=== PATIENT | female | born 1970 | race Caucasian/White ===

== ENCOUNTER 2022-02-08 13:58 | Emergency (ER) | payer BC, SELFPAY ==
[2022-02-08 13:59] VITALS: BP 175/83; PULSE 114; RESP 18; TEMP 36.3; O2SAT 100; BMI 41.4
--- NOTE | 2022-02-08 14:06 | EX.ED.DYSGE1 ---
HPI History of Present Illness Chief Complaint: Allergic Reaction Narrative Narrative: Patient arrives to the emergency department after eating a gummy bear with THC, she fell asleep and then woke up with a rash which was quite itchy and she feels kind of out of it. It was the first time she took a THC gummy. She does not have any shortness of breath. She does not feel her throat swelling. She has a has no nausea vomiting or loose stools or any other symptoms. PFSH PFSH Medical History Goiter Hypertension Menopausal depression Menopausal symptoms Osteoarthritis Recurrent UTI TOTAL ABDOMINAL HYSTERECTOMY STILL HAS OVARIES FOR FIBROIDS Home Medications celecoxib 200 mg capsule 200 mg PO DAILY #30 cap 02/28/20 [Rx Last Taken Unknown] lisinopril 10 mg tablet 10 mg PO DAILY #30 tab 02/28/20 [Rx Last Taken Unknown] hydrochlorothiazide 25 mg PO DAILY 02/08/22 [History Last Taken Unknown] prednisone 20 mg PO DAILY #6 tab 02/08/22 [Rx Last Taken Unknown] Allergy/AdvReac Type Severity Reaction Status Date / Time topiramate AdvReac Severe painful Verified 02/08/22 14:01 eyes and watery burning eyes Surgical History H/O partial thyroidectomy Social History Smoking Status: Never smoker second hand exposure: No alcohol intake: current substance use type: does not use ROS ROS ED ROS Narrative Past medical history: Reviewed Medications: Reviewed Social history: Noncontributory Review of systems: All systems negative except as indicated General: No fever. Otherwise as in HPI Eyes: No visual changes ENT: No upper airway congestion, normal voice Neck: No neck pain Cardiovascular: No chest pain Respiratory: No shortness of breath or cough Gastrointestinal: No abdominal pain, nausea vomiting or diarrhea Genitourinary: No dysuria Musculoskeletal: Chronic arthritis Skin: As in HPI Neurological: No memory loss, confusion or any focal weakness Psych: No recent behavioral changes Hematologic: No easy bleeding or easy bruising EXAM Physical Exam Narrative Exam Narrative: Physical exam General: Patient appears somewhat anxious and uncomfortable Head: Normocephalic, Atraumatic Eyes: Conjunctiva not pale ENT: Moist mucous membranes. Normal uvula. Normal posterior oropharynx. Noticed tongue swelling. Normal voice. Neck: Supple, Nontender, No lymphadenopathy Cardiovascular: Regular rate, Regular rhythm Respiratory: No distress, CTA bilaterally. No wheezing Abdomen: Soft, Nontender, Nondistended Back: Nontender, Normal Inspection. Negative for: CVA tenderness Extremities: Nontender, No edema Skin: Diffuse erythematous blanching rash consistent with an allergic reaction Neurological: Alert, Normal Strength, Normal Sensation Psychological: Normal affect Const Vital Signs: 02/08/22 13:59 02/08/22 14:28 02/08/22 15:00 Temperature 97.3 F L Temperature Source Temporal Pulse Rate 114 H 101 H 94 Respiratory Rate 18 17 18 Blood Pressure 175/83 H 157/83 H 166/87 H Blood Pressure Mean 113 107 113 Pulse Ox 100 100 100 Oxygen Delivery Method Room Air Room Air Room Air MDM MDM MDM Narrative Medical decision making narrative: Patient was observed, her rash is now gone she feels still little bit strange this is likely secondary to THC she appears well I believe she is safe for discharge. Discharge Plan Triage Chief Complaint: Allergic Reaction ED Provider: Norman Casillas Dx/Rx/DC Orders Clinical Impression: Allergic reaction Instructions: ED ADVERSE DRUG REACTION Allergic Prescriptions: New prednisone 20 mg tablet 20 mg PO DAILY Qty: 6 RF: 0 No Action lisinopril 10 mg tablet 10 mg PO DAILY Qty: 30 RF: 12 celecoxib [Celebrex] 200 mg capsule 200 mg PO DAILY Qty: 30 RF: 12 hydrochlorothiazide 25 mg tablet 25 mg PO DAILY RF: 0 Primary Care Provider: Zeus Mendoza Referrals: Zeus Mendoza MD [Primary Care Provider] - 2 Days Disposition Disposition: Home, Self Care
[2022-02-08] MEDS: MethylPREDNISolone 125 MG/2 ML Vial IV (14:14)
[2022-02-08] MEDS: DiphenhydrAMINE 50 MG/ML Syringe 25 MG IV (14:14)
[2022-02-08] MEDS: Famotidine 200 MG/20 ML MDV 20 MG in 0.9% Normal Saline (Pres. free 8 ML 300 MG IV (14:20)
[2022-02-08 14:28] VITALS: BP 157/83; PULSE 101; RESP 17; O2SAT 100
[2022-02-08 15:00] VITALS: BP 166/87; PULSE 94; RESP 18; O2SAT 100
[2022-02-08] MEDS: hydrOXYzine PAM 25 MG Capsule 50 MG PO (15:57)
[2022-02-08 16:02] VITALS: BP 166/78; PULSE 97; RESP 18; O2SAT 100
== END 2022-02-08 16:03 | disposition home or self-care (01) ==
PROVIDERS: Emergency Provider Emergency Medicine; PCP Family Medicine; Visit Provider Emergency Medicine
DX: R21 Rash and other nonspecific skin eruption (principal); T40.715A Adverse effect of cannabis, initial encounter; Y92.9 Unspecified place or not applicable; I10 Essential (primary) hypertension; M19.90 Unspecified osteoarthritis, unspecified site; Z87.440 Personal history of urinary (tract) infections; Z79.899 Other long term (current) drug therapy
CPT/HCPCS: 96374; 96375; 99283; A4216; J3490

== ENCOUNTER → 2024-07-07 | Outpatient (CLI) | payer OTHER, SELFPAY ==
--- NOTE | 2024-07-07 09:12 | BI_ITS ---
MAMMOGRAPHY - BILATERAL SCREENING REASON FOR EXAM: Female, 54 years old. Routine annual screening examination. PERTINENT HISTORY: Non-contributory. TECHNIQUE: Digital bilateral breast dixie (3D mammographic acquisition) in the CC and MLO projections. 2-D mediolateral oblique (MLO) and craniocaudad (CC) views of both breasts were obtained. CAD: Full Field Digital Mammography with Computer Added Detection was performed. COMPARISON: None. Baseline examination. FINDINGS: Breast Composition: There are scattered areas of fibroglandular density. There is a 9.4 mm x 10.4 mm well-defined nodule in the upper deep lateral aspect of the left breast. Correlation with ultrasound is recommended. No other significant abnormalities are identified. BI/SCRN MAMM (CAD)W/DIXIE BILAT IMPRESSION: 1.4 mm x 10.4 mm well-defined nodule in the upper deep lateral aspect of the left breast. Correlation with ultrasound is recommended. ASSESSMENT CATEGORY: BIRADS Category 0: Incomplete. Need additional imaging evaluation. A letter regarding these results will be sent to the patient by the facility within 30 days. Approximately 10% of breast cancers are not detected by mammography. A normal mammogram should not delay biopsy of a clinically suspicious abnormality. [id number] Electronically Signed: Abner Gomez MD at 14:39 EDT ,
== END | disposition home or self-care (01) ==
LOC: OPBI 09:11
PROVIDERS: PCP Family Medicine; Referring Provider Physician Assistant; Visit Provider Physician Assistant
DX: Z12.31 Encounter for screening mammogram for malignant neoplasm of breast (principal)
CPT/HCPCS: 77063; 77067

== ENCOUNTER → 2024-07-15 | Outpatient (CLI) | payer OTHER, SELFPAY ==
--- NOTE | 2024-07-15 10:52 | US_ITS ---
STUDY: ULTRASOUND BREAST - LEFT REASON FOR EXAM: Female, 54 years old. Abnormal screening mammogram. TECHNIQUE: Axial and longitudinal images of the LEFT breast were performed with a high resolution ultrasound transducer. # OF IMAGES: 24 COMPARISON: Comparison is made with prior mammogram dated July 07, 2024. FINDINGS: LEFT Breast: The upper lateral aspect of the left breast was examined with ultrasound the mammographic abnormality corresponds to a 1.2 cm x 1.1 cm x 0.5 cm well-defined hypoechoic nodule at the 2:00 position of the breast at 7 cm from the nipple. This is not a typical cyst. Biopsy recommended. US/Breast Limited Unilateral IMPRESSION: The palpable lump corresponds to a 1.2 cm x 1.1 cm x 0.5 cm hypoechoic nodule at the 2:00 position of the breast at 7 cm from the nipple. Biopsy recommended. ASSESSMENT CATEGORY: BIRADS Category 4: Suspicious - Biopsy Should Be Considered. A letter regarding these results will be sent to the patient by the facility within 30 days. Electronically Signed: Abner Gomez MD at 12:47 EDT ,
== END | disposition home or self-care (01) ==
LOC: OPBI 10:51
PROVIDERS: PCP Family Medicine; Referring Provider Physician Assistant; Visit Provider Physician Assistant
DX: R92.8 Other abnormal and inconclusive findings on diagnostic imaging of breast (principal)
CPT/HCPCS: 76642

== ENCOUNTER → 2024-07-22 | Outpatient (CLI) | payer OTHER, SELFPAY ==
--- NOTE | 2024-07-22 | BRBX_PTH ---
PATIENT: SANTOS HENDERSON LOC: [facility] U#:[id number] AGE/SX: 54/F ROOM: RE07/22/[address]: Dr. Andre Ruiz MD : 1970 BED: DIS: 07/22/2024 SPEC #: [id number] RECD: 07/22/24 11:12 STATUS: SHANE FRANCIS[facility] #: [id number] JENA: 07/22/24 00:[address]: Andre Ruiz DEPT: SURGICAL PATHOLOGY RECD BY: Pan Villar ENTERED: 07/22/24 11:30 SP TYPE: BREAST BX OTHR DR: Dr. 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 Negative for malignancy. See comment. MYLES/ 07/23/2024 COMMENT Correlation with clinical, radiologic findings and appropriate follow up are necessary. MICROSCOPIC DESCRIPTION Slides are reviewed. GROSS DESCRIPTION Received in fixative is one container labeled with the patient's name and designated Left breast. The specimen consists of multiple elongated fragments of morejon-yellow fibroadipose tissue that in aggregate measure 3.0 x 1.0 x 0.1 cm. The specimen is totally submitted in one cassette. MYLES. 07/22/2024 TC:1 CPT:05186
== END | disposition home or self-care (01) ==
LOC: LABSPEC 11:28
PROVIDERS: PCP Family Medicine; Referring Provider Surgery; Visit Provider Surgery
DX: N64.9 Disorder of breast, unspecified (principal)
CPT/HCPCS: 88305

== ENCOUNTER → 2025-10-28 | Outpatient (CLI) | payer OTHER, SELFPAY ==
--- NOTE | 2025-10-28 08:27 | BI_ITS ---
EXAM: SCRN MAMM (CAD)W/DIXIE BILAT DATE: 10/28/2025 CLINICAL HISTORY: F, Age 55 y/o , SCREENING TECHNIQUE: Procedure Code: [id number] Modality: MG Procedure: SCRN MAMM (CAD)W/DIXIE BILAT COMPARISON: Prior exam(s) dated 07/07/2024.. FINDINGS: TISSUE DENSITY: There are scattered areas of fibroglandular density. Bilateral Breast Mammographic Findings: No significant masses, calcifications or other abnormalities are identified. BI/SCRN MAMM (CAD)W/DIXIE BILAT IMPRESSION: OVERALL FINAL ASSESSMENT BI-RADS 2: BENIGN RECOMMENDATION: Routine annual follow-up in 1 Year Additional Recommendation none A letter with findings and recommendations will be mailed to the patient. Reading Location: [id number]
--- OUTSIDE RECORDS SUMMARY | 2025-10-28 08:48 | XMS RPT_ITS | CCD ---
Author Organization [facility] Care Team Providers Care Playground Monitor Name Role Phone Zeus Moscoso MD Primary Care Provider [phone] ZEUS MOSCOSO Referring Unavailable ZEUS MOSCOSO Primary Care Unavailable ZEUS MOSCOSO Primary Care Unavailable Andre Riuz Attending Unavailable Andre Ruiz Referring Unavailable Zeus Moscoso Primary Care Unavailable Zeus Moscoso Primary Care Unavailable Fredis VERAS, Walker Attending Unavailable Fredis VERAS, Walker Referring Unavailable Zeus Moscoso Primary Care Unavailable Walker Vanegas Attending Unavailable Fredis VERAS, Walker Referring Unavailable Zeus Moscoso Primary Care Unavailable Zesu Moscoso Referring Unavailable Andre Ruiz Attending Unavailable Zeus Moscoso MD Primary Care Provider [phone] Allergies Allergy Classification Reported Allergen(s) Allergy Type Date of Onset Reaction(s) Facility (1 source) topiramate Drug Allergy 07-22-2024 [facility] Repository Medications Completed/Discontinued Medications Medication Drug Class(es) Dates Sig (Normalized) Sig (Original) celecoxib 200 mg oral capsule (1 source) Nonsteroidal Anti-inflammator y Drug Start: 0 take 1 capsule by mouth once daily celecoxib (CELEBREX) 200 mg capsule Take 200 mg by mouth once daily. 0 05/30/2020 Active Comment on above: Take 200 mg by mouth once daily. hydroCHLOROthiazide 25 mg oral tablet (1 source) Thiazide Diuretic Start: 0 take 1 tablet by mouth once daily hydroCHLOROthiazide (HYDRODIURIL, ESIDRIX) 25 mg tablet Take 25 mg by mouth once daily. 0 04/25/2020 Active Comment on above: Take 25 mg by mouth once daily. lisinopril 10 mg oral tablet (1 source) Angiotensin Converting Enzyme Inhibitor Start: 0 take 1 tablet by mouth once daily lisinopril (ZESTRIL, PRINIVIL) 10 mg tablet Take 10 mg by mouth once daily. 0 06/03/2020 Active Comment on above: Take 10 mg by mouth once daily. Problems Problem Classification Problem Date Documented Da te Episodic/Chronic Menstrual disorders (1 source) Menometrorrhagia; Translations: [Excessive and frequent menstruation with irregular cycle] Onset: 06-08-2014 06-08-2014 Chronic Nonmalignant breast conditions (1 source) Disorder of breast, unspecified; Translations: [Disorder of breast, unspecified] Onset: 07-29-2024 Episodic Other screening for suspected conditions (not mental disorders or infectious disease) (2 sources) Other abnormal and inconclusive findings on diagnostic imaging of breast; Translations: [Encounter for screening mammogram for malignant neoplasm of breast] Onset: 07-30-2024 Episodic Thyroid disorders (1 source) Thyroid nodule; Translations: [Nontoxic single thyroid nodule] 06-06-2020 Chronic Results Test Name Value Interpretation Reference Range Facility CBC (INCLUDES DIFF/PLT)on Basophils (Bld) [#/Vol] 0.038 10*3/uL Normal 0-200 [facility] Comment on above: Performed By: #### 1 0231, 7600, 496, 6399 #### [facility] [place] [address] Central Sterilization Technician: Calvin Harrell MD Basophils/100 WBC (Bld) 0.6 % Normal [facility] Comment on above: Performed By: #### 1 0231, 7600, 496, 6399 #### [facility] [place] [address] Central Sterilization Technician: Calvin Harrell MD Eosinophils (Bld) [#/Vol] 0.107 10*3/uL Normal 15-500 [facility] Comment on above: Performed By: #### 1 0231, 7600, 496, 6399 #### [facility] [place] [address] Central Sterilization Technician: Calvin Harrell MD Eosinophils/100 WBC (Bld) 1.7 % Normal [facility] Comment on above: Performed By: #### 1 0231, 7600, 496, 6399 #### [facility] [place] [address] Central Sterilization Technician: Calvin Harrell MD Erythrocyte distribution width (RBC) [Ratio] 12.6 % Normal 11.0-15.0 [facility] Comment on above: Performed By: #### 1 0231, 7600, 496, 6399 #### [facility] [place] [address] Central Sterilization Technician: Calvin Harrell MD Hematocrit (Bld) [Volume fraction] 45.7 % High 35.0-45.0 [facility] Comment on above: Performed By: #### 1 0231, 7600, 496, 6399 #### [facility] [place] [address] Central Sterilization Technician: Calvin Harrell MD Hemoglobin (Bld) [Mass/Vol] 15.0 g/dL Normal 11.7-15.5 [facility] Comment on above: Performed By: #### 1 0231, 0, 496, 6399 #### [facility] [place] [address] Central Sterilization Technician: Calvin Harrell MD Lymphocytes (Bld) [#/Vol] 1.506 10*3/uL Normal 850-3900 [facility] Comment on above: Performed By: #### 1 0231, 0, 496, 6399 #### [facility] [place] [address] Central Sterilization Technician: Calvin Harrell MD Lymphocytes/100 WBC (Bld) 23.9 % Normal [facility] Comment on above: Performed By: #### 1 0231, 7600, 496, 6399 #### [facility] [place] [address] Central Sterilization Technician: Calvin Harrell MD MCH (RBC) [Entitic mass] 29.8 pg Normal 27.0-33.0 [facility] Comment on above: Performed By: #### 1 0231, 7600, 496, 6399 #### [facility] [place] [address] Central Sterilization Technician: Calvin Harrell MD MCHC (RBC) [Mass/Vol] 32.8 g/dL Normal 32.0-36.0 [facility] Comment on above: Result Comment: For adults, a slight decrease in the calculated MCHC value (in the range of 30 to 32 g/dL) is most likely not clinically significant; however, it should be interpreted with caution in correlation with other red cell parameters and the patient's clinical condition. Performed By: #### 1 0231, 7600, 496, 6399 #### [facility] [place] [address] Central Sterilization Technician: Calvin Harrell MD MCV (RBC) [Entitic vol] 90.9 fL Normal 80.0-100.0 [facility] Comment on above: Performed By: #### 1 0231, 0, 496, 6399 #### [facility] [place] [address] Central Sterilization Technician: Calvin Harrell MD Monocytes (Bld) [#/Vol] 0.599 10*3/uL Normal 200-950 [facility] Comment on above: Performed By: #### 1 0231, 7600, 496, 6399 #### [facility] [place] [address] Central Sterilization Technician: Calvin Harrell MD Monocytes/100 WBC (Bld) 9.5 % Normal [facility] Comment on above: Performed By: #### 1 0231, 7600, 496, 6399 #### [facility] [place] [address] Central Sterilization Technician: Calvin Harrell MD Neutrophils (Bld) [#/Vol] 4.051 10*3/uL Normal 3535-5436 [facility] Comment on above: Performed By: #### 1 0231, 7600, 496, 6399 #### [facility] of [place] [address] [place] [address] Central Sterilization Technician: Calvin Harrell MD Neutrophils/100 WBC (Bld) 64.3 % Normal [facility] Comment on above: Performed By: #### 1 0231, 7600, 496, 6399 #### [facility] of [address], [address] [place] [address] Central Sterilization Technician: Calvin Harrell MD Platelet mean volume (Bld) [Entitic vol] 10.2 fL Normal 7.5-12.5 [facility] Comment on above: Performed By: #### 1 0231, 7600, 496, 6399 #### [facility] [place] [address] Central Sterilization Technician: Calvin Harrell MD Platelets (Bld) [#/Vol] 265 10*3/uL Normal 140-400 [facility] Comment on above: Performed By: #### 1 0231, 7600, 496, 6399 #### [facility] of [address], [address] [place] [address] Central Sterilization Technician: Calvin Harrell MD RBC (Bld) [#/Vol] 5.03 10*6/uL Normal 3.80-5.10 [facility] Comment on above: Performed By: #### 1 0231, 7600, 496, 6399 #### [facility] [place] [address] Central Sterilization Technician: Calvin Harrell MD WBC (Bld) [#/Vol] 6.3 10*3/uL Normal 3.8-10.8 [facility] Comment on above: Performed By: #### 1 0231, 7600, 496, 6399 #### [facility] [place] [address] Central Sterilization Technician: Calvin Harrell MD COMPREHENSIVE METABOLIC PANE [facility] [place] [place] 10-04-2025 Albumin [Mass/Vol] 5.1 g/dL Normal 3.6-5.1 [facility] Comment on above: Performed By: #### 1 0231, 7600, 496, 6399 #### [facility] of [address], [address] [place] [address] Central Sterilization Technician: Calvin Harrell MD Albumin/Globulin [Mass ratio] 2.2 {ratio} Normal 1.0-2.5 [facility] Comment on above: Performed By: #### 1 0231, 7600, 496, 6399 #### [facility] of [address], [address] [place] [address] Central Sterilization Technician: Calvin Harrell MD ALP [Catalytic activity/Vol] 62 U/L Normal 37-153 [facility] Comment on above: Performed By: #### 1 0231, 7600, 496, 6399 #### [facility] [place] [address] Central Sterilization Technician: Calvin Harrell MD ALT [Catalytic activity/Vol] 21 U/L Normal 6-29 [facility] Comment on above: Performed By: #### 1 0231, 7600, 496, 6399 #### [facility] [place] [address] Central Sterilization Technician: Calvin Harrell MD AST [Catalytic activity/Vol] 17 U/L Normal 10-35 [facility] Comment on above: Performed By: #### 1 0231, 7600, 496, 6399 #### [facility] [place] [address] Central Sterilization Technician: Calvin Harrell MD Bilirubin [Mass/Vol] 0.7 mg/dL Normal 0.2-1.2 [facility] Comment on above: Performed By: #### 1 0231, 7600, 496, 6399 #### [facility] [place] [address] Central Sterilization Technician: Calvin Harrell MD BUN/CREATININE RATIO SEE NOTE: Normal 6-22 [facility] Comment on above: Result Comment: Not Reported: BUN and Creatinine are within reference range. Performed By: #### 1 0231, 7600, 496, 6399 #### [facility] [place] [address] Central Sterilization Technician: Calvin Harrell MD Calcium [Mass/Vol] 9.4 mg/dL Normal 8.6-10.4 [facility] Comment on above: Performed By: #### 1 0231, 7600, 496, 6399 #### [facility] [place] [address] Central Sterilization Technician: Calvin Harrell MD Chloride [Moles/Vol] 99 mmol/L Normal 98-110 [facility] Comment on above: Performed By: #### 1 0231, 7600, 496, 6399 #### [facility] [place] [address] Central Sterilization Technician: Calvin Harrell MD CO2 [Moles/Vol] 28 mmol/L Normal 20-32 [facility] Comment on above: Performed By: #### 1 0231, 7600, 496, 6399 #### [facility] [place] [address] Central Sterilization Technician: Calvin Harrell MD Creatinine [Mass/Vol] 0.72 mg/dL Normal 0.50-1.03 [facility] Comment on above: Performed By: #### 1 0231, 7600, 496, 6399 #### [facility] [place] [address] Central Sterilization Technician: Calvin Harrell MD GFR/1.73 sq M.predicted among non-blacks MDRD (S/P/Bld) [Vol rate/Area] 97 mL/min/{1.73_m2} Normal > OR = 60 [facility] Comment on above: Performed By: #### 1 0231, 7600, 496, 6399 #### [facility] [place] [address] Central Sterilization Technician: Calvin Harrell MD Globulin (S) [Mass/Vol] 2.3 g/dL Normal 1.9-3.7 [facility] Comment on above: Performed By: #### 1 0231, 7600, 496, 6399 #### [facility] [place] [address] Central Sterilization Technician: Calvin Harrell MD Glucose [Mass/Vol] 127 mg/dL High 65-99 [facility] Comment on above: Result Comment: Fasting reference interval For someone without known diabetes, a glucose value >125 mg/dL indicates that they may have diabetes and this should be confirmed with a follow-up test. Performed By: #### 1 0231, 7600, 496, 6399 #### [facility] [place] [address] Central Sterilization Technician: Calvin Harrell MD Potassium [Moles/Vol] 4.1 mmol/L Normal 3.5-5.3 [facility] Comment on above: Performed By: #### 1 023, 0, 496, 6399 #### [facility] [place] [address] Central Sterilization Technician: Calvin Harrell MD Protein [Mass/Vol] 7.4 g/dL Normal 6.1-8.1 [facility] Comment on above: Performed By: #### 1 0231, 7600, 496, 6399 #### [facility] [place] [address] Central Sterilization Technician: Calvin Harrell MD Sodium [Moles/Vol] 138 mmol/L Normal 135-146 [facility] Comment on above: Performed By: #### 1 0231, 7600, 496, 6399 #### [facility] [place] [address] Central Sterilization Technician: Calvin Harrell MD Urea nitrogen [Mass/Vol] 13 mg/dL Normal 7-25 [facility] Comment on above: Performed By: #### 1 0231, 7600, 496, 6399 #### [facility] [place] [address] Central Sterilization Technician: Calvin Harrell MD HEMOGLOBIN A1con 11-11-2025 HbA1c (Bld) [Mass fraction] 6.1 % High <5.7 [facility] Comment on above: Result Comment: For someone without known diabetes, a hemoglobin A1c value between 5.7% and 6.4% is consistent with prediabetes and should be confirmed with a follow-up test. For someone with known diabetes, a value <7% indicates that their diabetes is well controlled. A1c targets should be individualized based on duration of diabetes, age, comorbid conditions, and other considerations. This assay result is consistent with an increased risk of diabetes. Currently, no consensus exists regarding use of hemoglobin A1c for diagnosis of diabetes for children. Performed By: #### 1 0231, 7600, 496, 6399 #### [facility] [address], [address] [place] [address] Central Sterilization Technician: Calivn Harrell MD LIPID PANEL, [facility] 11 Cholesterol [Mass/Vol] 146 mg/dL Normal <200 [facility] Comment on above: Order Comment: FASTI NG:YES PATIENT UNABLE TO VOID; ADVISED TO RETURN FOR COLLECTION. FASTING: YES Performed By: #### 1 0231, 7600, 496, 6399 #### [facility] [address], [address] [place] [address] Central Sterilization Technician: Calvin Harrell MD Cholesterol in HDL [Mass/Vol] 51 mg/dL Normal > OR = 50 [facility] Comment on above: Order Comment: FASTI NG:YES PATIENT UNABLE TO VOID; ADVISED TO RETURN FOR COLLECTION. FASTING: YES Performed By: #### 1 0231, 7600, 496, 6399 #### [facility] [address], [address] [place] [address] Central Sterilization Technician: Calvin Harrell MD Cholesterol in LDL [Mass/Vol] 71 mg/dL Normal [facility] Comment on above: Order Comment: FASTI NG:YES PATIENT UNABLE TO VOID; ADVISED TO RETURN FOR COLLECTION. FASTING: YES Result Comment: Refe rence range: <100 Desirable range <100 mg/dL for primary prevention; <70 mg/dL for patients with CHD or diabetic patients with > or = 2 CHD risk factors. LDL-C is now calculated using the Jus-Gutierrez calculation, which is a validated novel method providing better accuracy than the Friedewald equation in the estimation of LDL-C. Jus SS et al. DON. 2013;310(19): 1353-6142 (http://education.Passworks.Hang w//faq/OLW712) Performed By: #### 1 0231, 7600, 496, 6399 #### [facility] [address], [address] [place] [address] Central Sterilization Technician: Calvin Harrell MD Cholesterol.total/ Cholesterol in HDL [Mass ratio] 2.9 {ratio} Normal <5.0 [facility] Comment on above: Order Comment: FASTI NG:YES PATIENT UNABLE TO VOID; ADVISED TO RETURN FOR COLLECTION. FASTING: YES Performed By: #### 1 0231, 7600, 496, 6399 #### [facility] [address], [address] [place] [address] Central Sterilization Technician: Calvin Harrell MD NON HDL CHOLESTEROL 95 mg/dL (calc) Normal <130 [facility] Comment on above: Order Comment: FASTI NG:YES PATIENT UNABLE TO VOID; ADVISED TO RETURN FOR COLLECTION. FASTING: YES Result Comment: For patients with diabetes plus 1 major ASCVD risk factor, treating to a non-HDL-C goal of <100 mg/dL (LDL-C of <70 mg/dL) is considered a therapeutic option. Performed By: #### 1 0231, 7600, 496, 6399 #### [facility] [place] [address] Central Sterilization Technician: Calvin Harrell MD Triglyceride [Mass/Vol] 163 mg/dL High <150 [facility] Comment on above: Order Comment: FASTI NG:YES PATIENT UNABLE TO VOID; ADVISED TO RETURN FOR COLLECTION. FASTING: YES Performed By: #### 1 0231, 7600, 496, 6399 #### [facility] [address], [address] [place] [address] Central Sterilization Technician: Calvin Harrell MD TSHon 10-04-2025 TSH Qn 1.59 m[IU]/L Normal 0.40-4.50 [facility] Comment on above: Performed By: #### 1 0231, 7600, 496, 6399 #### [facility] [place] [address] Central Sterilization Technician: Calvin Harrell MD CULTURE, URINE, ROUTINEon CULTURE, URINE, ROUTINE SEE NOTE Abnormal [facility] Comment on above: Result Comment: CULTURE, URINE, ROUTINE Micro Number: [id number] Test Status: Final Specimen Source: Urine Specimen Quality: Adequate Result: Greater than 100,000 CFU/mL of Escherichia coli E.coli INT WILLIS AMOX/CLAVULANATE I 16 AMP/SULBACTAM R >=32 CEFAZOLIN I 4 CEFEPIME S <=0.12 CEFTAZIDIME S <=0.5 CEFTRIAXONE S <=0.25 CIPROFLOXACIN R >=4 GENTAMICIN S <=1 IMIPENEM S <=0.25 LEVOFLOXACIN R >=8 MEROPENEM S <=0.25 NITROFURANTOIN S <=16 PIP/TAZOBACTAM S <=4 TRIMETHOPRIM/SULFA S <=20 S = Susceptible I = Intermediate R = Resistant NS = Not susceptible SDD = Susceptible Dose Dependent * = Not Tested NR = Not Reported NN = See Therapy Comments Performed By: #### 3 95 #### [facility] [place] [address] Central Sterilization Technician: Calvin Harrell MD CBC (INCLUDES DIFF/PLT)on Basophils (Bld) [#/Vol] 0.031 10*3/uL Normal 0-200 [facility] Comment on above: Performed By: #### 6 399, 7600, 496, 58774 #### [facility] [place] [address] Central Sterilization Technician: Calvin Harrell MD Basophils/100 WBC (Bld) 0.6 % Normal [facility] Comment on above: Performed By: #### 6 399, 7600, 496, 15408 #### [facility] [place] [address] Central Sterilization Technician: Calvin Harrell MD Eosinophils (Bld) [#/Vol] 0.071 10*3/uL Normal 15-500 [facility] Comment on above: Performed By: #### 6 399, 7600, 496, 75293 #### [facility] of [address], [address] [place] [address] Central Sterilization Technician: Calvin Harrell MD Eosinophils/100 WBC (Bld) 1.4 % Normal [facility] Comment on above: Performed By: #### 6 399, 7600, 496, 58375 #### [facility] [place] [address] Central Sterilization Technician: Calvin Harrell MD Erythrocyte distribution width (RBC) [Ratio] 12.5 % Normal 11.0-15.0 [facility] Comment on above: Performed By: #### 6 399, 7600, 496, 80690 #### [facility] [place] [address] Central Sterilization Technician: Calvin Harrell MD Hematocrit (Bld) [Volume fraction] 42.8 % Normal 35.0-45.0 [facility] Comment on above: Performed By: #### 6 399, 7600, 496, 11789 #### [facility] [place] [address] Central Sterilization Technician: Calvin Harrell MD Hemoglobin (Bld) [Mass/Vol] 13.7 g/dL Normal 11.7-15.5 [facility] Comment on above: Performed By: #### 6 399, 7600, 496, 18521 #### [facility] [place] [address] Central Sterilization Technician: Calvin Harrell MD Lymphocytes (Bld) [#/Vol] 1.392 10*3/uL Normal 850-3900 [facility] Comment on above: Performed By: #### 6 399, 7600, 496, 50258 #### [facility] [place] [address] Central Sterilization Technician: Calvin Harrell MD Lymphocytes/100 WBC (Bld) 27.3 % Normal [facility] Comment on above: Performed By: #### 6 399, 7600, 496, 54521 #### [facility] [place] [address] Central Sterilization Technician: Calvin Harrell MD MCH (RBC) [Entitic mass] 29.4 pg Normal 27.0-33.0 [facility] Comment on above: Performed By: #### 6 399, 7600, 496, 36482 #### [facility] [place] [address] Central Sterilization Technician: Calvin Harrell MD MCHC (RBC) [Mass/Vol] 32.0 g/dL Normal 32.0-36.0 [facility] Comment on above: Result Comment: For adults, a slight decrease in the calculated MCHC value (in the range of 30 to 32 g/dL) is most likely not clinically significant; however, it should be interpreted with caution in correlation with other red cell parameters and the patient's clinical condition. Performed By: #### 6 399, 7600, 496, 54801 #### [facility] [place] [address] Central Sterilization Technician: Calvin Harrell MD MCV (RBC) [Entitic vol] 91.8 fL Normal 80.0-100.0 [facility] Comment on above: Performed By: #### 6 399, 7600, 496, 23618 #### [facility] [place] [address] Central Sterilization Technician: Calvin Harrell MD Monocytes (Bld) [#/Vol] 0.495 10*3/uL Normal 200-950 [facility] Comment on above: Performed By: #### 6 399, 7600, 496, 37903 #### [facility] [place] [address] Central Sterilization Technician: Calvin Harrell MD Monocytes/100 WBC (Bld) 9.7 % Normal [facility] Comment on above: Performed By: #### 6 399, 7600, 496, 91159 #### [facility] of [address], [address] [place] [address] Central Sterilization Technician: Calvin Harrell MD Neutrophils (Bld) [#/Vol] 3.111 10*3/uL Normal 0326-4610 [facility] Comment on above: Performed By: #### 6 399, 7600, 496, 93162 #### [facility] of [address], [address] [place] [address] Central Sterilization Technician: Calvin Harrell MD Neutrophils/100 WBC (Bld) 61 % Normal [facility] Comment on above: Performed By: #### 6 399, 7600, 496, 68536 #### [facility] of [address], [address] [place] [address] Central Sterilization Technician: Calvin Harrell MD Platelet mean volume (Bld) [Entitic vol] 9.9 fL Normal 7.5-12.5 [facility] Comment on above: Performed By: #### 6 399, 7600, 496, 62277 #### [facility] of [address], [address] [place] [address] Central Sterilization Technician: Calvin Harrell MD Platelets (Bld) [#/Vol] 233 10*3/uL Normal 140-400 [facility] Comment on above: Performed By: #### 6 399, 7600, 496, 42511 #### [facility] [place] [address] Central Sterilization Technician: Calvin Harrell MD RBC (Bld) [#/Vol] 4.66 10*6/uL Normal 3.80-5.10 [facility] Comment on above: Performed By: #### 6 399, 7600, 496, 39080 #### [facility] of [address], [address] [place] [address] Central Sterilization Technician: Calvin Harrell MD WBC (Bld) [#/Vol] 5.1 10*3/uL Normal 3.8-10.8 [facility] Comment on above: Performed By: #### 6 399, 7600, 496, 17724 #### [facility] [place] [address] Central Sterilization Technician: Calvin Harrell [facility] [place] [place] 04-05-2025 Albumin [Mass/Vol] 4.9 g/dL Normal 3.6-5.1 [facility] Comment on above: Performed By: #### 6 399, 7600, 496, 27904 #### [facility] [place] [address] Central Sterilization Technician: Calvin Harrell MD Albumin/Globulin [Mass ratio] 2.1 {ratio} Normal 1.0-2.5 [facility] Comment on above: Performed By: #### 6 399, 7600, 496, 72089 #### [facility] [place] [address] Central Sterilization Technician: Calvin Harrell MD ALP [Catalytic activity/Vol] 59 U/L Normal 37-153 [facility] Comment on above: Performed By: #### 6 399, 7600, 496, 16756 #### [facility] [place] [address] Central Sterilization Technician: Calvin Harrell MD ALT [Catalytic activity/Vol] 17 U/L Normal 6-29 [facility] Comment on above: Performed By: #### 6 399, 7600, 496, 68507 #### [facility] [place] [address] Central Sterilization Technician: Calvin Harrell MD AST [Catalytic activity/Vol] 13 U/L Normal 10-35 [facility] Comment on above: Performed By: #### 6 399, 7600, 496, 24699 #### [facility] [place] [address] Central Sterilization Technician: Calvin Harrell MD Bilirubin [Mass/Vol] 0.7 mg/dL Normal 0.2-1.2 [facility] Comment on above: Performed By: #### 6 399, 7600, 496, 04965 #### [facility] [place] [address] Central Sterilization Technician: Calvin Harrell MD BUN/CREATININE RATIO SEE NOTE: Normal 6- [facility] Comment on above: Result Comment: Not Reported: BUN and Creatinine are within reference range. Performed By: #### 6 399, 7600, 496, 28661 #### [facility] [place] [address] Central Sterilization Technician: Calvin Harrell MD Calcium [Mass/Vol] 9.2 mg/dL Normal 8.6-10.4 [facility] Comment on above: Performed By: #### 6 399, 7600, 496, 39505 #### [facility] [place] [address] Central Sterilization Technician: Calvin Harrell MD Chloride [Moles/Vol] 100 mmol/L Normal 98-110 [facility] Comment on above: Performed By: #### 6 399, 7600, 496, 61877 #### [facility] [place] [address] Central Sterilization Technician: Calvin Harrell MD CO2 [Moles/Vol] 27 mmol/L Normal 20-32 [facility] Comment on above: Performed By: #### 6 399, 7600, 496, 47895 #### [facility] [place] [address] Central Sterilization Technician: Calvin Harrell MD Creatinine [Mass/Vol] 0.74 mg/dL Normal 0.50-1.03 [facility] Comment on above: Performed By: #### 6 399, 7600, 496, 83210 #### [facility] [place] [address] Central Sterilization Technician: Calvin Harrell MD GFR/1.73 sq M.predicted among non-blacks MDRD (S/P/Bld) [Vol rate/Area] 94 mL/min/{1.73_m2} Normal > OR = 60 [facility] Comment on above: Performed By: #### 6 399, 7600, 496, 28707 #### [facility] [place] [address] Central Sterilization Technician: Calvin Harrell MD Globulin (S) [Mass/Vol] 2.3 g/dL Normal 1.9-3.7 [facility] Comment on above: Performed By: #### 6 399, 7600, 496, 56160 #### [facility] [place] [address] Central Sterilization Technician: Calvin Harrell MD Glucose [Mass/Vol] 128 mg/dL High 65-99 [facility] Comment on above: Result Comment: Fasting reference interval For someone without known diabetes, a glucose value >125 mg/dL indicates that they may have diabetes and this should be confirmed with a follow-up test. Performed By: #### 6 399, 7600, 496, 24426 #### [facility] [place] [address] Central Sterilization Technician: Calvin Harrell MD Potassium [Moles/Vol] 4.2 mmol/L Normal 3.5-5.3 [facility] Comment on above: Performed By: #### 6 399, 7600, 496, 16908 #### [facility] [place] [address] Central Sterilization Technician: Calvin Harrell MD Protein [Mass/Vol] 7.2 g/dL Normal 6.1-8.1 [facility] Comment on above: Performed By: #### 6 399, 7600, 496, 14967 #### [facility] [place] [address] Central Sterilization Technician: Calvin Harrell MD Sodium [Moles/Vol] 139 mmol/L Normal 135-146 [facility] Comment on above: Performed By: #### 6 399, 7600, 496, 59263 #### [facility] [place] [address] Central Sterilization Technician: Calvin Harrell MD Urea nitrogen [Mass/Vol] 15 mg/dL Normal 7-25 [facility] Comment on above: Performed By: #### 6 399, 7600, 496, 56594 #### [facility] [place] [address] Central Sterilization Technician: Calvin Harrell MD HEMOGLOBIN A1con 04-05-2025 HbA1c (Bld) [Mass fraction] 6.2 % High <5.7 [facility] Comment on above: Result Comment: For someone without known diabetes, a hemoglobin A1c value between 5.7% and 6.4% is consistent with prediabetes and should be confirmed with a follow-up test. For someone with known diabetes, a value <7% indicates that their diabetes is well controlled. A1c targets should be individualized based on duration of diabetes, age, comorbid conditions, and other considerations. This assay result is consistent with an increased risk of diabetes. Currently, no consensus exists regarding use of hemoglobin A1c for diagnosis of diabetes for children. Performed By: #### 1 0231, 7600, 496, 6399 #### [facility] [address], [address] [place] [address] Central Sterilization Technician: Calvin Harrell MD LIPID PANEL, STANDARD 03-24 Cholesterol [Mass/Vol] 139 mg/dL Normal <200 [facility] Comment on above: Order Comment: FASTI NG:YES FASTING: YES Performed By: #### 6 399, 7600, 496, 48982 #### [facility] [place] [address] Central Sterilization Technician: Calvin Harrell MD Cholesterol in HDL [Mass/Vol] 50 mg/dL Normal > OR = 50 [facility] Comment on above: Order Comment: FASTI NG:YES FASTING: YES Performed By: #### 6 399, 7600, 496, 95433 #### [facility] [place] [address] Central Sterilization Technician: Calvin Harrell MD Cholesterol in LDL [Mass/Vol] 67 mg/dL Normal [facility] Comment on above: Order Comment: FASTI NG:YES FASTING: YES Result Comment: Refe rence range: <100 Desirable range <100 mg/dL for primary prevention; <70 mg/dL for patients with CHD or diabetic patients with > or = 2 CHD risk factors. LDL-C is now calculated using the Dragan calculation, which is a validated novel method providing better accuracy than the Friedewald equation in the estimation of LDL-C. Jus BENNETT et al. DON. 2013;310(19): 9609-0625 (http://Justin.TV.Passworks.Hang w//faq/IAI042) Performed By: #### 6 399, 7600, 496, 30341 #### [facility] [address], [address] [place] [address] Central Sterilization Technician: Calvin Harrell MD Cholesterol.total/ Cholesterol in HDL [Mass ratio] 2.8 {ratio} Normal <5.0 [facility] Comment on above: Order Comment: FASTI NG:YES FASTING: YES Performed By: #### 6 399, 7600, 496, 20811 #### [facility] [address], [address] [place] [address] Central Sterilization Technician: Calvin Harrell MD NON HDL CHOLESTEROL 89 mg/dL (calc) Normal <130 [facility] Comment on above: Order Comment: FASTI NG:YES FASTING: YES Result Comment: For patients with diabetes plus 1 major ASCVD risk factor, treating to a non-HDL-C goal of <100 mg/dL (LDL-C of <70 mg/dL) is considered a therapeutic option. Performed By: #### 6 399, 7600, 496, 82593 #### [facility] [place] [address] Central Sterilization Technician: Calvin Harrell MD Triglyceride [Mass/Vol] 139 mg/dL Normal <150 [facility] Comment on above: Order Comment: FASTI NG:YES FASTING: YES Performed By: #### 6 399, 7600, 496, 12414 #### [facility] [place] [address] Central Sterilization Technician: Calvin Harrell MD TSHon 04-05-2025 TSH Qn 3.28 m[IU]/L Normal 0.40-4.50 [facility] Comment on above: Performed By: #### 6 823, 0167, 322, 88820 #### [facility] [place] [address] [place] , [address] [place] [phone] Central Sterilization Technician: Calvin Harrell MD 36on 02-23-2025 36 Your fax has been successfully sent to Dr. Zeus Moscoso at [phone]. 02/23/2025 7:42:12 AM Origin Record Created by DOMENIC 02/23/2025 7:42:13 AM Conversion [[id number]] Type: application/postscript G3 to TIFF #1: Success [image/g3] (13ms) GhostScript TIFF #1: Success [image/tiff] (115ms) ([id number]) 02/23/2025 7:42:29 AM Conversion Successfully created cover sheet. Type: application/vnd.openxmlf ormats-officedocument.wo rdprocessingml.document G3 to TIFF #1: Success [image/g3] (12ms) GhostScript TIFF #1: Success [image/tiff] (71ms) Resubmitted: [application/postscript] Word Automation #1: Success [image/g3] (412ms) ([id number]) 02/23/2025 7:42:34 AM Transmission Record Sent to [phone] with remote ID [id number] Result: Success Page record: 1 - 3 Elapsed time: 01:28 on channel 49 [facility] 36 S: Patient spoke wit h CAC nurse regarding cough. B: Onset of symptoms for a week. A: Cough started in her throat, happens more at night, occ productive, green and thick and does not feel ill. Taking Coricidin HBP, no cough syrup, taking fluids well. Having cough attacks, no SOB or wheezing. No fever, no chills, feels okay. R: Will call the office when open in a few minutes unable to schedule for this office.. Patient understands care advice. No further needs at this time. Patient instructed to call back with new or worsening symptoms. Reason for Disposition [1] Continuous (nonstop) coughing interferes with work or school AND [2] no improvement using cough treatment per Care Advice Protocols used: Cough - Acute Fmmkliobdg-VFWYX-TX [facility] ALBUMIN, RANDOM URINE W/CREA MINA 10-12-2024 ALBUMIN, URINE 0.2 mg/dL Normal See Note: [facility] Comment on above: Order Comment: FASTI NG:YES PATIENT UNABLE TO VOID; ADVISED TO RETURN FOR COLLECTION. FASTING: YES Result Comment: Refe rence Range: Reference Range Not established Performed By: #### 1 0231, 7600, 493, 1746 #### [facility] [address], [address] [place] [phone] Central Sterilization Technician: Calvin Harrell MD ALBUMIN/CREATININE RATIO, RANDOM URINE 3 mg/g creat Normal <30 [facility] Comment on above: Order Comment: FASTI NG:YES PATIENT UNABLE TO VOID; ADVISED TO RETURN FOR COLLECTION. FASTING: YES Result Comment: The ADA defines abnormalities in albumin excretion as follows: Albuminuria Category Result (mg/g creatinine) Normal to Mildly increased <30 Moderately increased 30-299 Severely increased > OR = 300 The ADA recommends that at least two of three specimens collected within a 3-6 month period be abnormal before considering a patient to be within a diagnostic category. Performed By: #### 1 0231, 7600, 495, 2461 #### [facility] [address], [address] [place] [phone] Central Sterilization Technician: Calvin Harrell MD Creatinine (U) [Mass/Vol] 70 mg/dL Normal 20-275 [facility] Comment on above: Order Comment: FASTI NG:YES PATIENT UNABLE TO VOID; ADVISED TO RETURN FOR COLLECTION. FASTING: YES Performed By: #### 1 0231, 7600, 496, 6399 #### [facility] [place] [address] Central Sterilization Technician: Calvin Harrell MD CBC (INCLUDES DIFF/PLT)on Basophils (Bld) [#/Vol] 0.05 10*3/uL Normal 0-200 [facility] Comment on above: Performed By: #### 1 0231, 7600, 496, 6399 #### [facility] of [address], [address] [place] [address] Central Sterilization Technician: Calvin Harrell MD Basophils/100 WBC (Bld) 1.0 % Normal [facility] Comment on above: Performed By: #### 1 0231, 7600, 496, 6399 #### [facility] [place] [address] Central Sterilization Technician: Calvin Harrell MD Eosinophils (Bld) [#/Vol] 0.1 10*3/uL Normal 15-500 [facility] Comment on above: Performed By: #### 1 0231, 7600, 496, 6399 #### [facility] [place] [address] Central Sterilization Technician: Calvin Harrell MD Eosinophils/100 WBC (Bld) 2.0 % Normal [facility] Comment on above: Performed By: #### 1 0231, 7600, 496, 6399 #### [facility] [place] [address] Central Sterilization Technician: Calvin aHrrell MD Erythrocyte distribution width (RBC) [Ratio] 12.6 % Normal 11.0-15.0 [facility] Comment on above: Performed By: #### 1 0231, 7600, 496, 6399 #### [facility] [place] [address] Central Sterilization Technician: Calvin Harrell MD Hematocrit (Bld) [Volume fraction] 43.3 % Normal 35.0-45.0 [facility] Comment on above: Performed By: #### 1 0231, 7600, 496, 6399 #### [facility] [place] [address] Central Sterilization Technician: Calvin Harrell MD Hemoglobin (Bld) [Mass/Vol] 14.5 g/dL Normal 11.7-15.5 [facility] Comment on above: Performed By: #### 1 0231, 7600, 496, 6399 #### [facility] [place] [address] Central Sterilization Technician: Calvin Harrell MD Lymphocytes (Bld) [#/Vol] 1.44 10*3/uL Normal 850-3900 [facility] Comment on above: Performed By: #### 1 023, 7600, 496, 6399 #### [facility] [place] [address] Central Sterilization Technician: Calvin Harrell MD Lymphocytes/100 WBC (Bld) 28.8 % Normal [facility] Comment on above: Performed By: #### 1 023, 0, 496, 6399 #### [facility] [place] [address] Central Sterilization Technician: Calvin Harrell MD MCH (RBC) [Entitic mass] 30.3 pg Normal 27.0-33.0 [facility] Comment on above: Performed By: #### 1 023, 7600, 496, 6399 #### [facility] [place] [address] Central Sterilization Technician: Calvin Harrell MD MCHC (RBC) [Mass/Vol] 33.5 g/dL Normal 32.0-36.0 [facility] Comment on above: Result Comment: For adults, a slight decrease in the calculated MCHC value (in the range of 30 to 32 g/dL) is most likely not clinically significant; however, it should be interpreted with caution in correlation with other red cell parameters and the patient's clinical condition. Performed By: #### 1 0231, 7600, 496, 6399 #### [facility] of [address], [address] [place] [address] Central Sterilization Technician: Calvin Harrell MD MCV (RBC) [Entitic vol] 90.4 fL Normal 80.0-100.0 [facility] Comment on above: Performed By: #### 1 0231, 7600, 496, 6399 #### [facility] [place] [address] Central Sterilization Technician: Calvin Harrell MD Monocytes (Bld) [#/Vol] 0.455 10*3/uL Normal 200-950 [facility] Comment on above: Performed By: #### 1 0231, 7600, 496, 6399 #### [facility] [place] [address] Central Sterilization Technician: Calvin Harrell MD Monocytes/100 WBC (Bld) 9.1 % Normal [facility] Comment on above: Performed By: #### 1 0231, 7600, 496, 6399 #### [facility] [place] [address] Central Sterilization Technician: Calvin Harrell MD Neutrophils (Bld) [#/Vol] 2.955 10*3/uL Normal 2868-6542 [facility] Comment on above: Performed By: #### 1 0231, 7600, 496, 6399 #### [facility] [place] [address] Central Sterilization Technician: Calvin Harrell MD Neutrophils/100 WBC (Bld) 59.1 % Normal [facility] Comment on above: Performed By: #### 1 0231, 7600, 496, 6399 #### [facility] [place] [address] Central Sterilization Technician: Calvin Harrell MD Platelet mean volume (Bld) [Entitic vol] 9.9 fL Normal 7.5-12.5 [facility] Comment on above: Performed By: #### 1 0231, 7600, 496, 6399 #### [facility] of [address], [address] [place] [address] Central Sterilization Technician: Calvin Harrell MD Platelets (Bld) [#/Vol] 274 10*3/uL Normal 140-400 [facility] Comment on above: Performed By: #### 1 0231, 7600, 496, 6399 #### [facility] of [address], [address] [place] [address] Central Sterilization Technician: Calvin Harrell MD RBC (Bld) [#/Vol] 4.79 10*6/uL Normal 3.80-5.10 [facility] Comment on above: Performed By: #### 1 0231, 7600, 496, 6399 #### [facility] of [address], [address] [place] [address] Central Sterilization Technician: Calvin Harrell MD WBC (Bld) [#/Vol] 5.0 10*3/uL Normal 3.8-10.8 [facility] Comment on above: Performed By: #### 1 0231, 7600, 496, 6399 #### [facility] [place] [address] Central Sterilization Technician: Calvin Harrell MD [facility] METABOLIC [facility] 10-08-2024 Albumin [Mass/Vol] 4.9 g/dL Normal 3.6-5.1 [facility] Comment on above: Performed By: #### 1 0231, 7600, 496, 6399 #### [facility] [place] [address] Central Sterilization Technician: Calvin Harrell MD Albumin/Globulin [Mass ratio] 1.9 {ratio} Normal 1.0-2.5 [facility] Comment on above: Performed By: #### 1 0231, 7600, 496, 6399 #### [facility] [place] [address] Central Sterilization Technician: Calvin Harrell MD ALP [Catalytic activity/Vol] 70 U/L Normal 37-153 [facility] Comment on above: Performed By: #### 1 0231, 0, 496, 6399 #### [facility] of [address], [address] [place] [address] Central Sterilization Technician: Calvin Harrell MD ALT [Catalytic activity/Vol] 19 U/L Normal 6-29 [facility] Comment on above: Performed By: #### 1 0231, 7600, 496, 6399 #### [facility] of [address], [address] [place] [address] Central Sterilization Technician: Calvin Harrell MD AST [Catalytic activity/Vol] 12 U/L Normal 10-35 [facility] Comment on above: Performed By: #### 1 0231, 7600, 496, 6399 #### [facility] [place] [address] Central Sterilization Technician: Calvin Harrell MD Bilirubin [Mass/Vol] 0.6 mg/dL Normal 0.2-1.2 [facility] Comment on above: Performed By: #### 1 0231, 0, 496, 6399 #### [facility] [place] [address] Central Sterilization Technician: Calvin Harrell MD BUN/CREATININE RATIO SEE NOTE: Normal 6-22 [facility] Comment on above: Result Comment: Not Reported: BUN and Creatinine are within reference range. Performed By: #### 1 0231, 0, 496, 6399 #### [facility] of [address], [address] [place] [address] Central Sterilization Technician: Calvin Harrell MD Calcium [Mass/Vol] 9.4 mg/dL Normal 8.6-10.4 [facility] Comment on above: Performed By: #### 1 0231, 7600, 496, 6399 #### [facility] [place] [address] Central Sterilization Technician: Calvin Harrell MD Chloride [Moles/Vol] 99 mmol/L Normal 98-110 [facility] Comment on above: Performed By: #### 1 0231, 7600, 496, 9399 #### [facility] [address], [address] [place] [address] Central Sterilization Technician: Calvin Harrell MD CO2 [Moles/Vol] 27 mmol/L Normal 20-32 [facility] Comment on above: Performed By: #### 1 0231, 7600, 496, 6399 #### [facility] [place] [address] Central Sterilization Technician: Calvin Harrell MD Creatinine [Mass/Vol] 0.80 mg/dL Normal 0.50-1.03 [facility] Comment on above: Performed By: #### 1 023, 7599, 496, 6399 #### [facility] [place] [address] Central Sterilization Technician: Calvin Harrell MD GFR/1.73 sq M.predicted among non-blacks MDRD (S/P/Bld) [Vol rate/Area] 86 mL/min/{1.73_m2} Normal > OR = 60 [facility] Comment on above: Performed By: #### 1 023, 7599, 496, 6399 #### [facility] [place] [address] Central Sterilization Technician: Calvin Harrell MD Globulin (S) [Mass/Vol] 2.6 g/dL Normal 1.9-3.7 [facility] Comment on above: Performed By: #### 1 023, 7600, 496, 6399 #### [facility] [place] [address] Central Sterilization Technician: Calvin Harrell MD Glucose [Mass/Vol] 143 mg/dL High 65-99 [facility] Comment on above: Result Comment: Fasting reference interval For someone without known diabetes, a glucose value >125 mg/dL indicates that they may have diabetes and this should be confirmed with a follow-up test. Performed By: #### 1 0231, 7600, 496, 6399 #### [facility] [place] [address] Central Sterilization Technician: Calvin Harrell MD Potassium [Moles/Vol] 4.3 mmol/L Normal 3.5-5.3 [facility] Comment on above: Performed By: #### 1 023, 7600, 496, 6399 #### [facility] [address], [address] [place] [address] Central Sterilization Technician: Calvin Harrell MD Protein [Mass/Vol] 7.5 g/dL Normal 6.1-8.1 [facility] Comment on above: Performed By: #### 1 0231, 7600, 496, 6399 #### [facility] [place] [address] Central Sterilization Technician: Calvin Harrell MD Sodium [Moles/Vol] 139 mmol/L Normal 135-146 [facility] Comment on above: Performed By: #### 1 023, 0, 49, 6399 #### [facility] [place] [address] Central Sterilization Technician: Calvin Harrell MD Urea nitrogen [Mass/Vol] 14 mg/dL Normal 7-25 [facility] Comment on above: Performed By: #### 1 023, 7600, 496, 6399 #### [facility] [place] [address] Central Sterilization Technician: Calvin Harrell MD HEMOGLOBIN A1con 10-08-2024 HEMOGLOBIN A1c 6.4 % of total Hgb High <5.7 [facility] Comment on above: Result Comment: For someone without known diabetes, a hemoglobin A1c value between 5.7% and 6.4% is consistent with prediabetes and should be confirmed with a follow-up test. For someone with known diabetes, a value <7% indicates that their diabetes is well controlled. A1c targets should be individualized based on duration of diabetes, age, comorbid conditions, and other considerations. This assay result is consistent with an increased risk of diabetes. Currently, no consensus exists regarding use of hemoglobin A1c for diagnosis of diabetes for children. Performed By: #### 1 0231, 7600, 496, 6399 #### [facility] [address], [address] [place] [address] Central Sterilization Technician: Calvin Harrell MD LIPID PANEL, [facility] 09-24 Cholesterol [Mass/Vol] 151 mg/dL Normal <200 [facility] Comment on above: Order Comment: FASTI NG:YES PATIENT UNABLE TO VOID; ADVISED TO RETURN FOR COLLECTION. FASTING: YES Performed By: #### 1 0231, 7600, 496, 6399 #### [facility] [address], [address] [place] [address] Central Sterilization Technician: Calvin Harrell MD Cholesterol in HDL [Mass/Vol] 49 mg/dL Low > OR = 50 [facility] Comment on above: Order Comment: FASTI NG:YES PATIENT UNABLE TO VOID; ADVISED TO RETURN FOR COLLECTION. FASTING: YES Performed By: #### 1 0231, 7600, 496, 6399 #### [facility] [address], [address] [place] [address] Central Sterilization Technician: Calvin Harrell MD Cholesterol in LDL [Mass/Vol] 73 mg/dL Normal [facility] Comment on above: Order Comment: FASTI NG:YES PATIENT UNABLE TO VOID; ADVISED TO RETURN FOR COLLECTION. FASTING: YES Result Comment: Refe rence range: <100 Desirable range <100 mg/dL for primary prevention; <70 mg/dL for patients with CHD or diabetic patients with > or = 2 CHD risk factors. LDL-C is now calculated using the Jus-Matt calculation, which is a validated novel method providing better accuracy than the Friedewald equation in the estimation of LDL-C. Jus BENNETT et al. DON. 2013;310(19): 2872-4513 (http://education.Passworks.Hang w//faq/QIK805) Performed By: #### 1 0231, 7600, 496, 6399 #### [facility] [address], [address] [place] [address] Central Sterilization Technician: Calvin Harrell MD Cholesterol.total/ Cholesterol in HDL [Mass ratio] 3.1 {ratio} Normal <5.0 [facility] Comment on above: Order Comment: FASTI NG:YES PATIENT UNABLE TO VOID; ADVISED TO RETURN FOR COLLECTION. FASTING: YES Performed By: #### 1 0231, 7600, 496, 4953 #### [facility] [place] [address] Central Sterilization Technician: Calvin Harrell MD NON HDL CHOLESTEROL 102 mg/dL (calc) Normal <130 [facility] Comment on above: Order Comment: FASTI NG:YES PATIENT UNABLE TO VOID; ADVISED TO RETURN FOR COLLECTION. FASTING: YES Result Comment: For patients with diabetes plus 1 major ASCVD risk factor, treating to a non-HDL-C goal of <100 mg/dL (LDL-C of <70 mg/dL) is considered a therapeutic option. Performed By: #### 1 0231, 8060, 498, 4242 #### [facility] [place] [address] Central Sterilization Technician: Calvin Harrell MD Triglyceride [Mass/Vol] 192 mg/dL High <150 [facility] Comment on above: Order Comment: FASTI NG:YES PATIENT UNABLE TO VOID; ADVISED TO RETURN FOR COLLECTION. FASTING: YES Performed By: #### 1 0231, 0120, 496, 9366 #### [facility] [place] [address] Central Sterilization Technician: Calvin Harrell MD TSHon 10-08-2024 TSH Qn 3.88 m[IU]/L Normal 0.40-4.50 [facility] Comment on above: Performed By: #### 1 0231, 3370, 495, 1593 #### [facility] [place] [address] Central Sterilization Technician: Calvin Harrell MD Surgery Specimen Level Raquel 07-22-2024 Surgery Specimen Level IV Patient Age/Sex Location Account Attending Physician SANTOS HENDERSON 54/F [facility] [id number] Dr. Andre Ruiz MD Specimen: [id number] Received: 07/22/24 Status: SHANE Dunn Num: [id number] Spec Type: BREAST BX Subm Dr: Dr. 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 Negative for malignancy. See comment. MYLES/ 07/23/2024 COMMENT Correlation with clinical, radiologic findings and appropriate follow up are necessary. MICROSCOPIC DESCRIPTION Slides are reviewed. GROSS DESCRIPTION Received in fixative is one container labeled with the patient's name and designated Left breast. The specimen consists of multiple elongated fragments of morejon-yellow fibroadipose tissue that in aggregate measure 3.0 x 1.0 x 0.1 cm. The specimen is totally submitted in one cassette. 07/22/2024 TC:1 CPT:48676 Patient Age/Sex Location Account Attending Physician SANTOS HENDERSON 54/F [facility] [id number] Dr. Andre Ruiz MD Signed (signature on file) Dr. Derrek Barron MD 07/23/24 1316 Normal [facility] Comment on above: Performed By: #### P UBALDO #### [facility] [address] [place], [address] Surgery Visit Reporton 07-22 Surgery Visit Report [facility] [address] [place] [address] OFFICE VISIT Date of Service: 07/22/24 MR#: [id number] Acct: [id number] Name: SANTOS HENDERSON Rep #: [id number] : 1970 Provider: Dr. Andre christensen MD Age/Sex: 54/F Location: [facility] Status: Signed Intake Vital Signs 02/08/22 13:59 07/22/24 10:02 Height 5 ft 5 in 5 ft 5 in Weight: 265 lb 8 oz BMI 44.1 BP 157/85 H Blood Pressure Location Rt brachial Position Sitting Respiration 18 Pulse 100 Pulse Source Monitor Temp 97.5 F L Temp Source Temporal Pulse Oximetry (%) 100 Oxygen Delivery Method room air Intake Visit Reasons: birads 4 Chief Complaint: BIRADS 4 Is patient in pain?: No Allergies topiramate Adverse Reaction (Severe, Verified 07/22/24 10:03) painful eyes and watery burning eyes Medications ???Medication ???Instructions ???Recorded ???Confirmed ???Type celecoxib 200 mg capsule (Celebrex) 200 mg PO DAILY #30 caps 02/28/20 02/08/22 Rx bupropion HCl 150 mg 24 hr tablet, 150 mg PO QDAY 07/22/24 07/22/24 History extended release hydrochlorothiazide 50 mg tablet 50 mg PO QDAY 07/22/24 07/22/24 History lisinopril 20 mg tablet 20 mg PO QDAY 07/22/24 07/22/24 History metformin 500 mg tablet 500 mg PO BID 07/22/24 07/22/24 History PFSH Medical History (Updated 07/22/24 @ 14:[address] Andre Ruiz MD) Abnormal ultrasound of breast Abnormal mammogram of left breast Left breast lump Osteoarthritis Menopausal symptoms Menopausal depression Hypertension TOTAL ABDOMINAL HYSTERECTOMY STILL HAS OVARIES FOR FIBROIDS Goiter Recurrent UTI Surgical History H/O partial thyroidectomy Social History Smoking Status: Never smoker second hand exposure: No alcohol intake: current substance use type: does not use HPI HPI HPI: Patient is a 54-year-old female who presents for ultrasound???confirmed mammographic finding of a left breast nodule. They are referred from Dr. Moscoso. Based on sonographic imaging criteria this was given a BI-RADS 4. The mass was first found by routine screening. Patient has no prior history of breast pathology. As such, she has no history of prior breast biopsy. She underwent menarche at the age of 11. She has had 3 pregnancies and 3 live births. Breast-feeding was not used. Patient does have a first-degree relative with breast cancer and shares that her sister was diagnosed at the age of 62 and underwent a double mastectomy for treatment. There is no tenderness with the present finding. There is no nipple discharge associated with this finding. While patient has a history of a total abdominal hysterectomy, she confirms that her ovaries were left intact. The patient has no history of hormone replacement therapy. There is no history of trauma/infection to the affected breast. ROS General General: No weight change, appetite, fatigue, colon cancer, breast cancer or weakness HEENT HEENT: No difficulty swallowing, eye injury, eye surgery, swollen glands or hoarseness Endo Endocrine: Yes thyroid disease and diabetes mellitus; No thyroid cancer, Hair loss, heat intolerance or cold intolerance Skin Skin: No rash or changing moles Breast Breast: Yes left breast lump, abnormal mammogram and abnormal US; No right breast lump, nipple discharge, breast pain or breast enlargement Musc Musculoskeletal: Yes arthritis; No back problems, rheumatoid arthritis, gout or joint pain Cardio Cardiovascular: Yes high blood pressure; No murmur, pacemaker, heart disease, atrial fibrillation, heart attack, heart stent, palpitations, shortness of breat with exertion or chest pain Psych Psychiatric: No depression, anxiety or hearing voices Resp Respiratory: No shortness of breath, No sleep apnea, No cough, No COPD, No asthma, No emphysema and No wheezing Gastro Gastrointestinal: No abdominal pain, No nausea or vomiting, No diarrhea, No constipation, No blood in stool, No acid reflux, No hemorrhoids, No ulcers, No gallbladder problem and No black,tarry stools Tha Hematologic: No blood thinners, No blood disorders, No bleeding, No anemia and No blood clots Neuro Neurologic: No weakness Exam Const General: cooperative and anxious Nutritional Appearance: obese Orientation: alert, awake and oriented x3 Chest Breast Palpation: Yes no axillary lymphadenopathy Other: Bilaterally symmetric smaller???sized breasts. On the right there is subtle nodularity at the 3 o'clock position and directly retroareolar position. Additionally there is some lobular architecture at the 9 o'clock position 4 cm from the areolar border. On the left there is some lobular archite (more content not included)... [facility] Breast Limited Unilateralon 07-15-2024 Breast Limited Unilateral [facility] [address], [place] [id number] Breast Limited Unilateral MR#: [id number] Acct: [id number] Name: SANTOS HENDERSON Rep #: [id number] : 1970 F 54 From: Abner dominguez MD PCP: Dr. Zeus Moscoso MD Status: [facility] CLI Study: Breast Limited Unilateral Date of Exam: Exam# [id number] Ordering Dr: Walker Mcneal [id number] STUDY: ULTRASOUND BREAST - LEFT REASON FOR EXAM: Female, 54 years old. Abnormal screening mammogram. TECHNIQUE: Axial and longitudinal images of the LEFT breast were performed with a high resolution ultrasound transducer. # OF IMAGES: 24 COMPARISON: Comparison is made with prior mammogram dated July 07, 2024. FINDINGS: LEFT Breast: The upper lateral aspect of the left breast was examined with ultrasound the mammographic abnormality corresponds to a 1.2 cm x 1.1 cm x 0.5 cm well-defined hypoechoic nodule at the 2:00 position of the breast at 7 cm from the nipple. This is not a typical cyst. Biopsy recommended. US/Breast Limited Unilateral IMPRESSION: The palpable lump corresponds to a 1.2 cm x 1.1 cm x 0.5 cm hypoechoic nodule at the 2:00 position of the breast at 7 cm from the nipple. Biopsy recommended. ASSESSMENT CATEGORY: BIRADS Category 4: Suspicious - Biopsy Should Be Considered. A letter regarding these results will be sent to the patient by the facility within 30 days. Electronically Signed: Abner Gomez MD at 12:47 EDT , CC: EDA Capps; Dr. Zeus Moscoso MD Pharmacy Affairs Assistant: Signed [facility] SCRN MAMM (CAD)W/DIXIE BILATo n 07-07-2024 SCRN MAMM (CAD)W/DIXIE BILAT [facility] [address] [place] [id number] SCRN MAMM (CAD)W/DIXIE BILAT MR#: [id number] Acct: [id number] Name: SANTOS HENDERSON Rep #: [id number] : 1970 F 54 From: Abner dominguez MD PCP: Dr. Zeus Moscoso MD Status: [facility] Study: SCRN MAMM (CAD)W/DIXIE BILAT Date of Exam: 06/24 03/17 Exam# [id number] Ordering Dr: Walker Mcneal [id number] MAMMOGRAPHY - BILATERAL SCREENING REASON FOR EXAM: Female, 54 years old. Routine annual screening examination. PERTINENT HISTORY: Non-contributory. TECHNIQUE: Digital bilateral breast dixie (3D mammographic acquisition) in the CC and MLO projections. 2-D mediolateral oblique (MLO) and craniocaudad (CC) views of both breasts were obtained. CAD: Full Field Digital Mammography with Computer Added Detection was performed. COMPARISON: None. Baseline examination. FINDINGS: Breast Composition: There are scattered areas of fibroglandular density. There is a 9.4 mm x 10.4 mm well-defined nodule in the upper deep lateral aspect of the left breast. Correlation with ultrasound is recommended. No other significant abnormalities are identified. BI/SCRN MAMM (CAD)W/DIXIE BILAT IMPRESSION: 1.4 mm x 10.4 mm well-defined nodule in the upper deep lateral aspect of the left breast. Correlation with ultrasound is recommended. ASSESSMENT CATEGORY: BIRADS Category 0: Incomplete. Need additional imaging evaluation. A letter regarding these results will be sent to the patient by the facility within 30 days. Approximately 10% of breast cancers are not detected by mammography. A normal mammogram should not delay biopsy of a clinically suspicious abnormality. [id number] Electronically Signed: Abner Gomez MD at 14:39 EDT , CC: EDA Capps; Dr. Zeus Moscoso MD Pharmacy Affairs Assistant: Signed [facility] CNOVon 12-22-2023 CNOV Office Visit ([facility] ) -------- SANTOS HENDERSON ([id number]) 1970 F Date Time Provider Department 12/22/23 10:15 AM WANDA BUSTAMANTE [facility] During your visit today, we recorded the following information about you: Temperature Pulse Respiration Blood pressure 98 degrees 121/minute 18/minute 190/105 Weight 125.6 kg Wanda Bustamante APRN.CNP 12/22/2023 10:40 AM Signed Subjective HPI HPI Santos Henderson is a 53 year old female who presents today for CC of right eye irritation/drainage/itch ing. This started 1 week ago/worsening 1 day ago. Has tried nothing for relief. Symptoms are worsened by nothing. Risk factors hx of eye allergies. .Patient presents with: Conjunctivitis: R eye x1 week PAST MEDICAL HISTORY Diagnosis Date HTN (hypertension) Thyroid nodule right PAST SURGICAL HISTORY Procedure Laterality Date EXPLORATORY LAPAROTOMY CELIOTOMY W/WO BIOPSY SPX 05/25/14 to rule out bowel injury - negative exam PARTIAL THYROID EXCISION Left for goiter ALLERGIES Patient has no known allergies. MEDICATIONS celecoxib (CELEBREX) 200 mg capsule Take 200 mg by mouth once daily. hydroCHLOROthiazide (HYDRODIURIL, ESIDRIX) 25 mg tablet Take 25 mg by mouth once daily. lisinopril (ZESTRIL, PRINIVIL) 10 mg tablet Take 10 mg by mouth once daily. trimethoprim-polymyxin (POLYTRIM) 10,000 unit- 1 mg/mL ophthalmic solution Use 1 Drop in the right eye four times daily for 7 days. No family history on file. Social History Tobacco Use Smoking status: Never Smokeless tobacco: Never Vaping Use Vaping Use: Never used Review of Systems Constitutional: Negative for chills and fever. HENT: Negative for ear discharge, ear pain and sore throat. Eyes: Positive for discharge and redness. Negative for blurred vision, double vision, photophobia and pain. Neurological: Positive for headaches. Objective Blood pressure 190/105, pulse (!) 121, temperature 36.7 ?C (98 ?F), resp. rate 18, weight 125.6 kg (277 lb), SpO2 99%. Bp elevated today/reports strong hx of white coat syndrome is not concerned. Physical Exam Constitutional: General: She is not in acute distress. Appearance: She is not toxic-appearing. HENT: Right Ear: Hearing, tympanic membrane and external ear normal. Left Ear: Hearing, tympanic membrane, ear canal and external ear normal. Nose: No mucosal edema. Mouth/Throat: Pharynx: Uvula midline. Eyes: General: Right eye: No discharge. Left eye: No discharge. Conjunctiva/sclera: Right eye: Right conjunctiva is injected. Left eye: Left conjunctiva is not injected. Lymphadenopathy: Cervical: Right cervical: No superficial cervical adenopathy. Left cervical: No superficial cervical adenopathy. Comments: No cervical lymphadenopathy bilaterally Neurological: Mental Status: She is oriented to person, place, and time. ASSESSMENT/PLAN: 1. Acute conjunctivitis of right eye, unspecified acute conjunctivitis type - ICD9: 372.00, ICD10: H10.31 Unclear etiology, viral vs allergic vs bacterial conjunctivitis - see medication orders - course and contagiousness issues discussed, including hand washing. - Instructed to call if high fever, development of periorbital redness or swelling, eye pain, visual changes, concerns or if symptoms persist. - POLYMYXIN B SULFATE 10,000 UNIT-TRIMETHOPRIM 1 MG/ML EYE DROPS Wanda Bustamante APRN.FINANCIAL QUANTITATIVE ANALYST Allergies As of Date: 12/22/2023 (No Known Allergies) Date Reviewed: 12/22/2023 Reviewed by: Wilma Burns MA - Fully Assessed Reason for Visit: Conjunctivitis [24] Cmt: R eye x1 week Primary Visit Diagnosis:Acute conjunctivitis of right eye, unspecified acute conjunctivitis type [H10.31] Order(s):trimethoprim-po lymyxin (POLYTRIM) 10,000 unit- 1 mg/mL ophthalmic solutionUse 1 Drop in the right eye four times daily for 7 days.Disp: 10 mLRfl: 0 Prescriptions as of 12/22/2023 - trimethoprim-polymyxin (POLYTRIM) 10,000 unit- 1 mg/mL ophthalmic solution Use 1 Drop in the right eye four times daily for 7 days. - celecoxib (CELEBREX) 200 mg capsule Take 200 mg by mouth once daily. - hydroCHLOROthiazide (HYDRODIURIL, ESIDRIX) 25 mg tablet Take 25 mg by mouth once daily. - lisinopril (ZESTRIL, PRINIVIL) 10 mg tablet Take 10 mg by mouth once daily. Problem List As Of Date 12/22/2023 Noted Resolved Menometrorrhagia [N92.1] 06/08/2014 Thyroid nodule [E04.1] Prescriptions ordered this encounter Disp Refills Start End POLYMYXIN B SULFATE 10,000 UNIT-TRIM* 10 mL 0 12/22/2023 12/29/2023 Route: RIGHT EYE Sig: Use 1 Drop in the right eye four times daily for 7 days. Encounter Status:Closed by WANDA BUSTAMANTE on 12/22/23 Normal [facility] No Panel Informationon 08-08 [facility] XR KNEE 3V AP/LAT/MERCHANT L Ton 08-08-2022 XR KNEE 3V AP/LAT/MERCHANT LT * * *Final Report* * * DATE OF EXAM: Aug 08 2022 8:06AM MDX 5208 - XR KNEE 3V AP/LAT/MERCHANT LT / PROCEDURE REASON: m25.562 pain in left knee * * * * Physician Interpretation * * * * PROCEDURE: Bilateral knees INDICATION: m25.561 pain in right knee.bilateral knee pain TECHNIQUE: XR KNEE 3V AP/LAT/MERCHANT RT, XR KNEE 3V AP/LAT/MERCHANT LT COMPARISON: None FINDINGS: Significant medial joint compartment narrowing with mild tricompartment spur formation bilaterally. No fracture or joint effusion. IMPRESSION: Advanced medial joint compartment osteoarthritis bilaterally. Pharmacy Affairs Assistant: PSCB Transcribe Date/Time: Aug 08 2022 8:26A Dictated by : ALISTAIR GUNTER MD This examination was interpreted and the report reviewed and electronically signed by: ALISTAIR GUNTER MD on Aug 08 2022 8:34AM EST [id number] [facility] XR KNEE 3V AP/LAT/MERCHANT R Ton 08-08-2022 XR KNEE 3V AP/LAT/MERCHANT RT * * *Final Report* * * DATE OF EXAM: Aug 08 2022 8:06AM MDX 5209 - XR KNEE 3V AP/LAT/MERCHANT RT / PROCEDURE REASON: m25.561 pain in right knee * * * * Physician Interpretation * * * * PROCEDURE: Bilateral knees INDICATION: m25.561 pain in right knee.bilateral knee pain TECHNIQUE: XR KNEE 3V AP/LAT/MERCHANT RT, XR KNEE 3V AP/LAT/MERCHANT LT COMPARISON: None FINDINGS: Significant medial joint compartment narrowing with mild tricompartment spur formation bilaterally. No fracture or joint effusion. IMPRESSION: Advanced medial joint compartment osteoarthritis bilaterally. Pharmacy Affairs Assistant: GLORIA Transcribe Date/Time: Aug 08 2022 8:26A Dictated by : ALISTAIR GUNTER MD This examination was interpreted and the report reviewed and electronically signed by: ALISTAIR GUNTER MD on Aug 08 2022 8:34AM EST [id number] [facility] Encounters Encounter Date Encounter Type Care Provider Facility Start: 02-23-2025 End: 02-23-2025 ambulatory Santos Funez Clinical Communication Start: 02-23-2025 End: 02-23-2025 [facility] Start: 07-22-2024 End: 07-22-2024 ambulatory Zeus Moscoso Facility:[facility] Start: 07-22-2024 End: 07-22-[facility] Start: 07-15-2024 End: 07-15-2024 ambulatory Zeus Moscoso Facility:[facility] Start: 07-07-2024 End: 07-07-2024 ambulatory Zeus Moscoso Facility:[facility] Start: 12-22-2023 End: 12-22-2023 ambulatory ZEUS MOSCOSO Facility:[facility] Start: 08-08-2022 ambulatory [facility] Start: 08-08-2022 End: 08-08-2022 Subsequent hospital visit by physician Xr [facility] Radiology Comment on above: m25.562, m25.561 Procedures Date Procedure Procedure Detail Performing Clinician Start: 08-08-2022 Radiologic examinati on knee 3 views Zeus Moscoso MD Work Phone: Plan of Treatment Date Care Activity Detail Author Start: 2043 RSV Immunization for Adults (1 - 1-dose 75+ series) RSV Immunization for Adults (1 - 1-dose 75+ series) [facility] Start: 07-25-2025 Influenza vaccination Influenz a Vaccine (Season Ended) [facility] Start: 07-25-2024 COVID-19 Vaccine ( season) COVID-19 Vaccine ( season) [facility] Start: 07-25-2022 Influenza vaccination INFLUENZA (#1) [facility] Start: 01-26-2022 COVID-19 VACCINE (3 - Booster for Moderna series) COVID-19 VACCINE (3 - Booster for Moderna series) [facility] Start: 2018 Pneumococcal Vaccine : 50+ Years (1 of 1 - PCV) Pneumococcal Vaccine: 50+ Years (1 of 1 - PCV) [facility] Start: 2018 SHINGRIX VACCINE (1 of 2) SHINGRIX V ACCINE (1 of 2) [facility] Start: 2018 Zoster Vaccines (1 of 2) Zoster Vacc kyle (1 of 2) [facility] Start: 2013 COLOGUARD (FIT-DNA) COLOGUARD (FIT-D NA) [facility] Start: 2013 Colonoscopy COLONOSCOPY [facility] Start: 2013 COLORECTAL CANCER SCREENING COLORECTAL CANCER SCREENING [facility] Start: [address] COLONOGRAPHY [facility] Start: 2013 DIABETES SCREEN DIABETES SCREEN [facility] Start: 2013 FECAL OCCULT BLOOD FECAL OCCULT BLOO D [facility] Start: 2013 LIPID SCREEN LIPID SCREEN [facility] Start: 2013 SIGMOIDOSCOPY SIGMOIDOSCOPY [facility] Start: 2008 Mammography MAMMOGRAM [facility] Start: 2008 Screening for malign ant neoplasm of breast Mammogram [facility] Start: 1998 HPV TESTING HPV TESTING [facility] Start: 1998 Screening for malign ant neoplasm of cervix [facility] Start: 1989 PAP TESTING PAP TESTING [facility] Start: 1989 Screening for malign ant neoplasm of cervix Pap Smear [facility] Start: 1987 DTaP/Tdap/Td Vaccine s (1 - Tdap) DTaP/Tdap/Td Vaccines (1 - Tdap) [facility] Start: 1987 Hepatitis B Vaccines (1 of 3 - 19+ 3-dose series) Hepatitis B Vaccines (1 of 3 - 19+ 3-dose series) [facility] Start: 1987 Urine microalbumin profile DTAP,TDAP ,TD (1 - Tdap) [facility] Start: 1986 HEPATITIS C SCREENING HEPATITIS C SC [facility] Start: 1986 Hepatitis C screening Hepatitis C Sc [facility] Start: 1986 HIV SCREENING HIV SCREENING [facility] Start: 1980 Adult depression scr eening assessment DEPRESSION SCREENING [facility] Start: 1969 MMR Vaccines (1 of 1 - Standard series) MMR Vaccines (1 of 1 - Standard series) [facility] Start: 1968 HEPATITIS B (1 of 3 - 3-dose series) HEPATITIS B (1 of 3 - 3-dose series) [facility] Start: 1968 HIV screening HIV Screening [facility] Start: 1968 Screening for malign ant neoplasm of colon [facility] Payers Date Payer Category Payer Self-pay 2022 Unknown MMO MMO [employer] [id number] 2022-Present [phone] [address] [place] [address] PPO [id number] 2022 Unknown [id number] Unknown [id number] Unknown [id number] Unknown [id number] Unknown [id number] Social History Date Type Detail Facility [facility]: [facility] Start: 06-06-2020 Tobacco use and exposure Smokeless t obacco non-user [facility] Start: 1970 Sex Assigned At Not on file [facility] Start: 07-29-2022 End: 08-08-2022 Exposure to SARS-CoV-2 (event) Not sure [facility] Tobacco smoking stat [facility] Tobacco smoking consumption unknown [facility] Start: 12-27-2024 Sex Female (finding) [facility] Gender identity Not on file [facility] Telephone encounter Note 02-23-2025 Telephone Encounter - Santos Bustamante RN - 02/23/2025 8:13 AM EDT Note Date & Type Note Facility 02-23-2025 Telephone encounter Note Form atting of this note might be different from the original. Your fax has been successfully sent to Dr. Zeus Moscoso at [phone]. 02/23/2025 7:42:12 AM Origin Record Created by DOMENIC 02/23/2025 7:42:13 AM Conversion [[id number]] Type: application/postscript G3 to TIFF #1: Success [image/g3] (13ms) GhostScript TIFF #1: Success [image/tiff] (115ms) ([id number]) 02/23/2025 7:42:29 AM Conversion Successfully created cover sheet. Type: application/vnd.openxmlformats-office document.wordprocessingml.document G3 to TIFF #1: Success [image/g3] (12ms) GhostScript TIFF #1: Success [image/tiff] (71ms) Resubmitted: [application/postscript] Word Automation #1: Success [image/g3] (412ms) ([id number]:WORKSRV2) 02/23/2025 7:42:34 AM Transmission Record Sent to [phone] with remote ID [id number] Result: Success Page record: 1 - 3 Elapsed time: 01:28 on channel 49 [facility] Note 02-23-2025 Telephone Encounter - Santos Bustamante RN - 02/23/2025 8:13 AM EDTTelephone Encounter - Santos Bustamante RN - 02/23/2025 7:28 AM EDT Note Date & Type Note Facility 02-23-2025 Miscellaneous Notes Formattin g of this note might be different from the original. Your fax has been successfully sent to Dr. Zeus Moscoso at [phone]. 02/23/2025 7:42:12 AM Origin Record Created by DOMENIC 02/23/2025 7:42:13 AM Conversion [[id number]] Type: application/postscript G3 to TIFF #1: Success [image/g3] (13ms) GhostScript TIFF #1: Success [image/tiff] (115ms) ([id number]) 02/23/2025 7:42:29 AM Conversion Successfully created cover sheet. Type: application/vnd.openxmlformats-officedocu ment.wordprocessingml.document G3 to TIFF #1: Success [image/g3] (12ms) GhostScript TIFF #1: Success [image/tiff] (71ms) Resubmitted: [application/postscript] Word Automation #1: Success [image/g3] (412ms) ([id number]:WORKSRV2) 02/23/2025 7:42:34 AM Transmission Record Sent to [phone] with remote ID [phone] Result: Success Page record: 1 - 3 Elapsed time: 01:28 on channel 49 S: Patient spoke with [facility] nurse regarding cough. B: Onset of symptoms for a week. A: Cough started in her throat, happens more at night, occ productive, green and thick and does not feel ill. Taking Coricidin HBP, no cough syrup, taking fluids well. Having cough attacks, no SOB or wheezing. No fever, no chills, feels okay. R: Will call the office when open in a few minutes unable to schedule for this office.. Patient understands care advice. No further needs at this time. Patient instructed to call back with new or worsening symptoms. Reason for Disposition [1] Continuous (nonstop) coughing interferes with work or school AND [2] no improvement using cough treatment per Care Advice Protocols used: Cough - Acute Ojbmfilqoc-MUAJX-YJ documented in this encounter [facility] Telephone encounter Note 02-23-2025 Telephone Encounter - Santos Bustamante RN - 02/23/2025 7:28 AM EDT Note Date & Type Note Facility 02-23-2025 Telephone encounter Note Form atting of this note might be different from the original. S: Patient spoke with [facility] nurse regarding cough. B: Onset of symptoms for a week. A: Cough started in her throat, happens more at night, occ productive, green and thick and does not feel ill. Taking Coricidin HBP, no cough syrup, taking fluids well. Having cough attacks, no SOB or wheezing. No fever, no chills, feels okay. R: Will call the office when open in a few minutes unable to schedule for this office.. Patient understands care advice. No further needs at this time. Patient instructed to call back with new or worsening symptoms. Reason for Disposition [1] Continuous (nonstop) coughing interferes with work or school AND [2] no improvement using cough treatment per Care Advice Protocols used: Cough - Acute [id number] M[facility] Progress note 12-22-2023 Note Date & Type Note Facility 12-22-2023 Note HNO ID: [id number] Author: WANDA BUSTAMANTE APRN.FINANCIAL QUANTITATIVE ANALYST Service: ? Author Type: Nurse Practitioner Type: Progress Notes Filed: 12/22/2023 10:40 Note Text: Subjective HPI HPI Santos Henderson is a 53 year old female who presents today for CC of right eye irritation/drainage/itching. This started 1 week ago/worsening 1 day ago. Has tried nothing for relief. Symptoms are worsened by nothing. Risk factors hx of eye allergies. .Patient presents with: Conjunctivitis: R eye x1 week PAST MEDICAL HISTORY Diagnosis Date HTN (hypertension) Thyroid nodule right PAST SURGICAL HISTORY Procedure Laterality Date EXPLORATORY LAPAROTOMY CELIOTOMY W/WO BIOPSY SPX 05/25/14 to rule out bowel injury - negative exam PARTIAL THYROID EXCISION Left for goiter ALLERGIES Patient has no known allergies. MEDICATIONS celecoxib (CELEBREX) 200 mg capsule Take 200 mg by mouth once daily. hydroCHLOROthiazide (HYDRODIURIL, ESIDRIX) 25 mg tablet Take 25 mg by mouth once daily. lisinopril (ZESTRIL, PRINIVIL) 10 mg tablet Take 10 mg by mouth once daily. trimethoprim-polymyxin (POLYTRIM) 10,000 unit- 1 mg/mL ophthalmic solution Use 1 Drop in the right eye four times daily for 7 days. No family history on file. Social History Tobacco Use Smoking status: Never Smokeless tobacco: Never Vaping Use Vaping Use: Never used Review of Systems Constitutional: Negative for chills and fever. HENT: Negative for ear discharge, ear pain and sore throat. Eyes: Positive for discharge and redness. Negative for blurred vision, double vision, photophobia and pain. Neurological: Positive for headaches. Objective Blood pressure 190/105, pulse (!) 121, temperature 36.7 ?C (98 ?F), resp. rate 18, weight 125.6 kg (277 lb), SpO2 99%. Bp elevated today/reports strong hx of white coat syndrome is not concerned. Physical Exam Constitutional: General: She is not in acute distress. Appearance: She is not toxic-appearing. HENT: Right Ear: Hearing, tympanic membrane and external ear normal. Left Ear: Hearing, tympanic membrane, ear canal and external ear normal. Nose: No mucosal edema. Mouth/Throat: Pharynx: Uvula midline. Eyes: General: Right eye: No discharge. Left eye: No discharge. Conjunctiva/sclera: Right eye: Right conjunctiva is injected. Left eye: Left conjunctiva is not injected. Lymphadenopathy: Cervical: Right cervical: No superficial cervical adenopathy. Left cervical: No superficial cervical adenopathy. Comments: No cervical lymphadenopathy bilaterally Neurological: Mental Status: She is oriented to person, place, and time. ASSESSMENT/PLAN: 1. Acute conjunctivitis of right eye, unspecified acute conjunctivitis type - ICD9: 372.00, ICD10: H10.31 Unclear etiology, viral vs allergic vs bacterial conjunctivitis - see medication orders - course and contagiousness issues discussed, including hand washing. - Instructed to call if high fever, development of periorbital redness or swelling, eye pain, visual changes, concerns or if symptoms persist. - POLYMYXIN B SULFATE 10,000 UNIT-TRIMETHOPRIM 1 MG/ML EYE DROPS Wanda Bustamante APRN.[facility] Summary Purpose Family History No Family History Records FoundNo Family History Records FoundNo Family History Records FoundNo Family History Records FoundNo Family History Records Found Advance Directives No Advanced Directives Records FoundNo Advanced Directives Records FoundNo Advanced Directives Records FoundNo Advanced Directives Records FoundNo Advanced Directives Records Found Additional Source Comments Source Comments (unrecognize d section and content) In the event this informatio n is protected by the Federal Confidentiality of Alcohol and Drug Abuse Patient Records regulations: The Federal rules restrict any use of the information to criminally investigate or prosecute any alcohol or drug abuse patient.[facility] Care Teams (unrecognized sec tion and content) Playground Monitor Relationship Specialty Start Date End Date Zeus Moscoso MD [address] [id number] PCP - General Family Practice 05/01/20 Playground Monitor Relationship Specialty Start Date End Date Zeus Moscoso MD [address] [phone] PCP - General Family Medicine 02/23/25 INFORMATION SOURCE (unrecogn ized section and content) DATE CREATED AUTHOR 08/24/2022 [facility] DATE CREATED AUTHOR AUTHOR'S ORGANIZ ATION 12/22/2023 [facility] DATE CREATED AUTHOR AUTHOR'S ORGANIZ ATION 07/30/2024 [facility] DATE CREATED AUTHOR AUTHOR'S ORGANIZ ATION 02/26/2025 [facility] DATE CREATED AUTHOR AUTHOR'S ORGANIZ ATION 10/05/2025 [facility] Reason for Visit (unrecogniz ed section and content) Reason Onset Date Comments Cough 02/23/2025 FOR RECORDS PERTAINING TO PATIENTS WHO ARE OR HAVE BEEN ENROLLED IN A CHEMICAL DEPENDENCY/SUBSTANCEABUSE PROGRAM, SOME INFORMATION MAY BE OMITTED. This clinical summary was aggregated from multiple sources. Caution should be exercised in using it in the provision of clinical care. This summary normalizes information from multiple sources, and as a consequence, information in this document may materially change the coding, format and clinical context of patient data. In addition, data may be omitted in some cases. CLINICAL DECISIONS SHOULD BE BASED ON THE PRIMARY CLINICAL RECORDS. [facility]. provides no warranty or guarantee of the accuracy or completeness of information in this document.
== END | disposition home or self-care (01) ==
LOC: OPBI 08:26
PROVIDERS: PCP Family Medicine; Referring Provider Physician Assistant; Visit Provider Physician Assistant
DX: Z12.31 Encounter for screening mammogram for malignant neoplasm of breast (principal)
CPT/HCPCS: 77063; 77067